=== PATIENT | female | born 1955 | race African-American/Black ===

== ENCOUNTER 2019-01-08 15:17 | Emergency (ER) | payer MEDICARE ==
[~2019-01-08] VITALS: Ht 172.7 cm; Wt 106.6 kg
--- OUTSIDE RECORDS SUMMARY | 2019-01-08 15:21 | XMS REPORT ---
Author Author Admin, [place] Organization [facility] Address [address] [place] [address] Phone Allergies, Adverse Reactions, Alerts Allergy Name Reaction Description Start Date Severity Status Provider TOMAS INHIBITORS Cough and angioedema Severe Active Yuridia Lissette DO INDOCIN Critical Active Radha Arreola MD Conditions or Problems Problem Name Problem Code Onset Date Status Entry Date Provider Comment Standard Description Annotate Smoking 305.1 Active Debby Marrufo Johnny DO Tobacco use disorder Cough due to TOMAS inhibitor 786.2 Active Yuridia Lissette DO Cough Neuropathy, peripheral 356.9 Active Yuridia Lissette DO Unspecified hereditary and idiopathic peripheral neuropathy BMI 39.0-39.9 Active Adelita Rizo MD Body Mass Index 39.0-39.9, adult Thrombocytosis 238.71 Active Adelita Rizo MD Essential thrombocythemia ANXIETY, GENERALIZED Active Maulik Pham [facility] Generalized anxiety disorder Seizure disorder 780.39 Active Adelita Rizo MD Other convulsions Sleep apnea, obstructive 327.23 Active Adelita Rizo MD Obstructive sleep apnea (adult) (pediatric) Colorectal screening V76.51 Active Adelita Rizo MD Screening for malignant neoplasms of colon 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 Adelita Rizo MD Neoplasm of uncertain behavior of skin Screening mammogram for breast cancer V76.12 Active Adelita Rizo MD Other screening mammogram COPD 496 Active Adelita Rizo MD Chronic airway obstruction, not elsewhere classified Prediabetes 790.29 Active Yuridia Mclaughlin DO Other abnormal glucose Drug Use - Positive DAST 305.9 Active 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 Other, mixed, or unspecified drug abuse Obesity 278.00 Active Gabriel Brock MD Obesity, unspecified Anxiety depression 300.4 Active 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 Dysthymic disorder Chronic back pain 724.5 Active 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 Backache, unspecified HTN 401.9 Active Radha Arreola MD Unspecified essential hypertension Hyperlipidemia 272.4 Active Radha Arreola MD Other and unspecified hyperlipidemia Respiratory failure, acute ICD-518.81 Inactive Yuridia Mclaughlin DO Snoring ICD-786.09 Inactive Yuridia Mclaughlin DO 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 Inactive Yuridia Mclaughlin DO BMI 37.0-37.9 Inactive Adelita Rizo MD Cough ICD-786.2 Inactive Yuridia Mclaughlin DO Smoking ICD-305.1 Inactive Yuridia Mclaughlin DO Hx of hysterectomy ICD-V88.02 Inactive Yuridia Mclaughlin DO Screening mammogram for breast cancer ICD-V76.12 Inactive Adelita Rizo MD Diabetes mellitus type II 250.00 Inactive Adelita Rizo MD Diabetes mellitus without mention of complication, type II or unspecified type, not stated as uncontrolled Health maintenance exam ICD-V70.0 Inactive Yuridia Mclaughlin DO Insomnia ICD-780.52 Inactive Yuridia Lissette DO Std screening ICD-V74.5 Inactive Yuridia Lissette DO Hx of narcotic abuse ICD-305.90 Inactive Yuridiacristina Mclaughlin DO Opioid abuse, continuous 305.51 Inactive Julio Klein MD Opioid abuse, continuous use Nerve pain ICD-729.2 Inactive Yuridia Mclaughlin DO ANXIETY, GENERALIZED ICD-300.02 Inactive Adelita Rizo MD Chest pain ICD-786.50 Inactive Yuridia Mclaughlin DO Shortness of breath ICD-786.05 Inactive Yuridia Mclaughlin DO Respiratory failure, acute 518.81 Resolved Yuridiacristina Mclaughlin DO Acute respiratory failure Snoring 786.09 Resolved Yuridia Lissette DO Other dyspnea and respiratory abnormality 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 Yuridia Lissette DO Thoracic aortic aneurysm without mention of rupture BMI 37.0-37.9 Resolved Adelita Rizo MD Body Mass Index 37.0-37.9, adult Cough 786.2 Resolved Yuridia Barfieldey DO Cough x 3 weeks, dry Smoking 305.1 Resolved Yuridia Mclaughlin DO Tobacco use disorder Hx of hysterectomy V88.02 Resolved Yuridia Mclaughlin DO Acquired absence of uterus with remaining cervical stump Screening mammogram for breast cancer V76.12 Resolved Adelita Rizo MD Other screening mammogram Health maintenance exam V70.0 Resolved Yuridia Mclaughlin DO Routine general medical examination at a health care facility Insomnia 780.52 Resolved Yuridia Mclaughlin DO Insomnia, unspecified Std screening V74.5 Resolved Yuridia Mclaughlin DO Screening examination for venereal disease Hx of narcotic abuse 305.90 Resolved Yuridia Mclaughlin DO Other, mixed, or unspecified drug abuse, unspecified use Nerve pain 729.2 Resolved Yuridia Mclaughlin DO Neuralgia, neuritis, and radiculitis, unspecified ANXIETY, GENERALIZED 300.02 Resolved Adelita Rizo MD Generalized anxiety disorder Chest pain 786.50 Resolved Yuridia Mclaughlin DO Unspecified chest pain Shortness of breath 786.05 Resolved Yuridia Mclaughlin DO Shortness of breath Medication List Medication Instructions Start Date Stop Date Generic Name NDC Status Provider Patient Instruction VENLAFAXINE HCL ER 150 MG CAP TAKE ONE CAPSULE BY MOUTH EVERY DAY VENLAFAXINE HCL 55566820921 Active Yuridia Mclaughlin DO Active GABAPENTIN 300 MG ORAL CAPSULE 1 tab By Mouth BID GABAPENTIN [id number] Henri Turner DO Active AMITRIPTYLINE HCL 25 MG ORAL TABLET 1 by mouth nightly at bedtime AMITRIPTYLINE HCL 50892970687 Henri Turner DO Active BUSPIRONE HCL 10 MG ORAL TABLET 1 by mouth twice a day BUSPIRONE HCL 36564048635 Henri Rizo MD Active HYDROCODONE-ACETAMINOPHEN 10-325 MG ORAL TABLET every 6 hours HYDROCODONE-ACETAMINOPHEN 66991828080 Henri Rizo MD Active PROAIR HFA 108 (90 Base) MCG/ACT INHALATION AEROSOL SOLUTION 2 puffs every 4 - 6 hours as needed ALBUTEROL SULFATE 59758826315 Henri Rizo MD Active IBUPROFEN 800 MG ORAL TABLET 1 by mouth every 8 hours as needed for pain IBUPROFEN 03920562545 Henri Rizo MD Active ATORVASTATIN CALCIUM 20 MG ORAL TABLET Take one tablet by mouth daily ATORVASTATIN CALCIUM 14031091906 Active Debby Niru Johnny DO Active LOSARTAN POTASSIUM 100 MG ORAL TABLET one tablet By Mouth qday LOSARTAN POTASSIUM 03620162651 Active Debby Niru Johnny DO Active NORVASC 10 MG ORAL TABLET 1 by mouth every day AMLODIPINE BESYLATE 12529615229 Active Debby Niru Johnny DO Active CHANTIX STARTING MONTH PETR 0.5 MG X 11 & 1 MG X 42 ORAL TABLET take 0.5 mg daily for 3 days then twice a day for 4 days. Then take 1mg twice a day for 11 more weeks CHANTIX STARTING MONTH PETR 0.5 MG X 11 & 1 MG X 42 ORAL TABLET VARENICLINE TARTRATE Inactive AMITRIPTYLINE HCL 10 MG ORAL TABLET 1 by mouth nightly at bedtime AMITRIPTYLINE HCL 10 MG ORAL TABLET 315636 AMITRIPTYLINE HCL Inactive LEVETIRACETAM 1000 MG ORAL TABLET take 1 tablet By Mouth Twice a Day LEVETIRACETAM 1000 MG ORAL TABLET 230480 LEVETIRACETAM Inactive TESSALON PERLES 100 MG ORAL CAPSULE 1 by mouth 3 times a day as needed for cough TESSALON PERLES 100 MG ORAL CAPSULE 675830 BENZONATATE Inactive TRAZODONE HCL 50 MG ORAL TABLET 1 by mouth nightly at bedtime TRAZODONE HCL 50 MG ORAL TABLET 280807 TRAZODONE HCL Inactive AZITHROMYCIN 250 MG ORAL TABLET 2 tablets by mouth on day one then one tablet by mouth each day for a total of 5 days AZITHROMYCIN 250 MG ORAL TABLET 887113 AZITHROMYCIN Inactive AMITRIPTYLINE HCL 50 MG ORAL TABLET 1 by mouth nightly at bedtime AMITRIPTYLINE HCL 50 MG ORAL TABLET 623212 AMITRIPTYLINE HCL Inactive BUSPIRONE HCL 10 MG ORAL TABLET 1 by mouth three times a day BUSPIRONE HCL 10 MG ORAL TABLET 720204 BUSPIRONE HCL Inactive TRAZODONE HCL 50 MG ORAL TABLET 1 by mouth nightly at bedtime TRAZODONE HCL 50 MG ORAL TABLET 225471 TRAZODONE HCL Inactive HYDROCODONE-ACETAMINOPHEN 10-325 MG ORAL TABLET 1 By Mouth Every Six hrs As Needed for pain HYDROCODONE-ACETAMINOPHEN 10-325 MG ORAL TABLET 559280 HYDROCODONE-ACETAMINOPHEN Inactive PROAIR HFA 108 (90 Base) MCG/ACT INHALATION AEROSOL SOLUTION 2 puffs every 4 - 6 hours as needed PROAIR HFA 108 (90 Base) MCG/ACT INHALATION AEROSOL SOLUTION ALBUTEROL SULFATE Inactive CLONAZEPAM 0.5 MG ORAL TABLET 1 By Mouth at bedtime CLONAZEPAM 0.5 MG ORAL TABLET 299931 CLONAZEPAM Inactive CYMBALTA 60 MG ORAL CAPSULE DELAYED RELEASE PARTICLES Take one tablet by mouth daily CYMBALTA 60 MG ORAL CAPSULE DELAYED RELEASE PARTICLES 928606 DULOXETINE HCL Inactive LYRICA 75 MG ORAL CAPSULE one capsule By Mouth Twice a Day LYRICA 75 MG ORAL CAPSULE PREGABALIN Inactive CHANTIX STARTING MONTH PETR 0.5 MG X 11 & 1 MG X 42 ORAL TABLET take 0.5 mg daily for 3 days then twice a day for 4 days. Then take 1mg twice a day for 11 more weeks VARENICLINE TARTRATE 84638879994 No Longer Active Debby Turner DO Active AMITRIPTYLINE HCL 10 MG ORAL TABLET 1 by mouth nightly at bedtime AMITRIPTYLINE HCL 62389059130 No Longer Active Adelita Rizo MD Active LEVETIRACETAM 1000 MG ORAL TABLET take 1 tablet By Mouth Twice a Day LEVETIRACETAM 67258942632 No Longer Active Adelita Rizo MD Active TESSALON PERLES 100 MG ORAL CAPSULE 1 by mouth 3 times a day as needed for cough BENZONATATE 54953245186 No Longer Active Adelita Rizo MD Active TRAZODONE HCL 50 MG ORAL TABLET 1 by mouth nightly at bedtime TRAZODONE HCL 40951586238 No Longer Active Adelita Rizo MD Active AZITHROMYCIN 250 MG ORAL TABLET 2 tablets by mouth on day one then one tablet by mouth each day for a total of 5 days AZITHROMYCIN 82695753841 No Longer Active Adelita Rizo MD Active AMITRIPTYLINE HCL 50 MG ORAL TABLET 1 by mouth nightly at bedtime AMITRIPTYLINE HCL 55323823186 No Longer Active Adelita Rizo MD Active BUSPIRONE HCL 10 MG ORAL TABLET 1 by mouth three times a day BUSPIRONE HCL 12516529278 No Longer Active Adelita Rizo MD Active TRAZODONE HCL 50 MG ORAL TABLET 1 by mouth nightly at bedtime TRAZODONE HCL 48594525145 No Longer Active Adelita Rizo MD Active HYDROCODONE-ACETAMINOPHEN 10-325 MG ORAL TABLET 1 By Mouth Every Six hrs As Needed for pain HYDROCODONE-ACETAMINOPHEN 71021120054 No Longer Active Adelita Rizo MD Active PROAIR HFA 108 (90 Base) MCG/ACT INHALATION AEROSOL SOLUTION 2 puffs every 4 - 6 hours as needed ALBUTEROL SULFATE 28927559701 No Longer Active Adelita Rizo MD Active BENAZEPRIL HCL 20 MG ORAL TABLET take 1 tablet By Mouth daily BENAZEPRIL HCL 47057458274 No Longer Active Adelita Rizo MD Active BENAZEPRIL-HYDROCHLOROTHIAZIDE 10-12.5 MG ORAL TABLET Take one tablet by mouth twice daily BENAZEPRIL-HYDROCHLOROTHIAZIDE 82424478687 No Longer Active Adelita Rizo MD Active CLONAZEPAM 0.5 MG ORAL TABLET 1 By Mouth at bedtime CLONAZEPAM 12699429019 No Longer Active Adeilta Rizo MD Active CYMBALTA 60 MG ORAL CAPSULE DELAYED RELEASE PARTICLES Take one tablet by mouth daily DULOXETINE HCL 58887937602 No Longer Active Julio Klein MD Active GABAPENTIN 300 MG ORAL CAPSULE 1 by mouth four times a day GABAPENTIN 89201909006 No Longer Active Adelita Rizo MD Active LYRICA 75 MG ORAL CAPSULE one capsule By Mouth Twice a Day PREGABALIN 59529413649 No Longer Active Debby Niru Matthewsus DO Active Advance Directives Directive Description Start Date DISCUSSED - NO DECISION MADE Vital Signs Date Name Value Unit Range Description blood pressure, diastolic 87 mm[Hg] BP edmondson blood pressure, systolic 143 mm[Hg] BP sys height E&M 67.50 [in_us] Bdy height pulse rate E&M 75 /min Heart rate temperature E&M 98.7 [degF] Body temperature weight E&M 261 [lb_av] Weight Measured Diagnostic Results Date Name Value Unit Range Description Lab Report: CBC With Differential/Platelet, Comp. Metabolic Panel (14), ... - Chemistry thyroid stimulating hormone, serum 1.080 u[iU]/mL 0.450-4.500 very low density lipoproteins 74 mg/dL 5-40 hepatitis B surface antigen Negative Negative chloride, serum 100 mmol/L 96-106 urea nitrogen, blood 25 mg/dL 8-27 Lab Report: CBC With Differential/Platelet, Comp. Metabolic Panel (14), ... - Hematology mean corpuscular hemoglobin concentration, RBC 33.0 G/DL % 31.5-35.7 erythrocyte (RBC) count 5.21 X10E6/UL 10*6/mm3 3.77-5.28 Lab Report: CBC With Differential/Platelet, Comp. Metabolic Panel (14), ... - Serology hepatitis C antibody, serum <0.1 0.0-0.9 Lab Report: CBC With Differential/Platelet, Comp. Metabolic Panel (14), ... - Chemistry Absolute Neutrophils 2.4 X10E3/UL 10*3/uL 1.4-7.0 LDL cholesterol, serum 96 mg/dL 0-99 urea nitrogen/creatinine ratio, serum 27 12-28 Lab Report: CBC With Differential/Platelet, Comp. Metabolic Panel (14), ... 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 Metabolic Panel (14), ... - Chemistry HDL cholesterol, serum 50 mg/dL >39 Lab Report: CBC With Differential/Platelet, Comp. Metabolic Panel (14), ... - Hematology monocytes as percent of blood leukocytes 10 % Not Estab. Lab Report: CBC With Differential/Platelet, Comp. Metabolic Panel (14), ... - Chemistry albumin/globulin ratio, serum 1.5 1.2-2.2 creatinine, serum 0.93 mg/dL 0.57-1.00 cholesterol, serum 220 mg/dL 190-256 1070/07/17 bilirubin, serum, total 0.3 mg/dL 0.0-1.2 Lab Report: CBC With Differential/Platelet, Comp. Metabolic Panel (14), ... - Hematology Eosinophil Absolute Count 0.1 X10E3/UL 10*3/uL 0.0-0.4 Lab Report: CBC With Differential/Platelet, Comp. Metabolic Panel (14), ... - Chemistry aspartate aminotransferase (SGOT), serum 50 U/L 0-40 Lab Report: CBC With Differential/Platelet, Comp. Metabolic Panel (14), ... - Hematology red blood cell distribution width 16.1 % 12.3-15.4 leukocyte count, blood 6.1 X10E3/UL 10*3/mm3 3.4-10.8 Lab Report: CBC With Differential/Platelet, Comp. Metabolic Panel (14), ... - Chemistry potassium, serum 5.7 mmol/L 3.5-5.2 albumin, serum 4.4 g/dL 3.6-4.8 immature granulocytes, percentage of total cells, blood 0 % Not Estab. Lab Report: CBC With Differential/Platelet, Comp. Metabolic Panel (14), ... - Hematology lymphocyte count, blood, automated 2.9 X10E3/UL 10*3/mm3 0.7-3.1 hematocrit, blood 46.1 % 34.0-46.6 Lab Report: CBC With Differential/Platelet, Comp. Metabolic Panel (14), ... - Chemistry sodium, serum 141 mmol/L 134-144 Lab Report: CBC With Differential/Platelet, Comp. Metabolic Panel (14), ... - Hematology neutrophils as percent of blood leukocytes 39 % Not Estab. basophils as percent of blood leukocytes 1 % Not Estab. Lab Report: CBC With Differential/Platelet, Comp. Metabolic Panel (14), ... - Serology rapid plasma reagin antibody, serum Non Reactive Non Reactive Lab Report: CBC With Differential/Platelet, Comp. Metabolic Panel (14), ... - Chemistry carbon dioxide, venous blood 18 mmol/L 20-29 triglyceride, serum, fasting 369 mg/dL 0-149 calcium, serum 9.3 mg/dL 8.7-10.3 alanine aminotransferase (SGPT), serum 48 U/L 0-32 Lab Report: CBC With Differential/Platelet, Comp. Metabolic Panel (14), ... - Hematology mean corpuscular hemoglobin, RBC 29.2 pg 26.6-33.0 Lab Report: CBC With Differential/Platelet, Comp. Metabolic Panel (14), ... - Chemistry protein, total, serum 7.4 g/dL 6.0-8.5 alkaline phosphatase, serum 71 U/L 39-117 Lab Report: CBC With Differential/Platelet, Comp. Metabolic Panel (14), ... - Hematology hemoglobin, blood 15.2 g/dL 11.1-15.9 lymphocytes as percent of blood leukocytes 48 % Not Estab. Lab Report: CBC With Differential/Platelet, Comp. Metabolic Panel (14), ... - Chemistry hemoglobin A1C, blood, as % of total hemoglobin 6.4 % 4.8-5.6 Lab Report: CBC With Differential/Platelet, Comp. Metabolic Panel (14), ... - Genetics/fertility eGFR if 76 mL/min/1.73m2 >59 Lab Report: CBC With Differential/Platelet, Comp. Metabolic Panel (14), ... - Hematology basophil count, absolute 0.0 x10E3/uL 0.0-0.2 Lab Report: CBC With Differential/Platelet, Comp. Metabolic Panel (14), ... - Chemistry globulin, serum 3.0 1.5-4.5 Estimated Glomerular Filtration Rate (calc) 66 mL/min/1.73m2 >59 vitamin D 25-hydroxy, serum 44.0 ng/mL 30.0-100.0 Lab Report: CBC With Differential/Platelet, Comp. Metabolic Panel (14), ... - Hematology eosinophils as percent of blood leukocytes 2 % Not Estab. Lab Report: CBC With Differential/Platelet, Comp. Metabolic Panel (14), ... - Chemistry blood glucose, random 106 mg/dL 65-99 Lab Report: CBC With Differential/Platelet, Comp. Metabolic Panel (14), ... - Hematology monocyte count, blood, automated 0.6 X10E3/UL 10*3/uL 0.1-0.9 platelet count 248 X10E3/UL 10*3/mm3 150-379 Encounters Date Encounter Provider Code Facility 11:08:21 CDT Est Patient Detailed - 87191 Debby Turner DO CPT-23221 [facility] 10:14:51 CDT Est Patient Detailed - 78204 Yuridia Mclaughlin DO CPT-19425 [facility] 11:17:46 CDT Est Patient Detailed - 97609 Yuridia Barfieldey DO CPT-46087 [facility] 13:52:07 CDT Est Patient Exp Problem - 33530 Andrew Crooks APRN CPT-79119 [facility] 15:23:45 CDT Est Patient Detailed - 49823 Adelita Rizo MD CPT-93374 [facility] 14:29:34 CDT Est Patient Detailed - 15325 Adelita Rizo MD CPT-14827 [facility] 12:36:17 MICROSYSTEMS ENGINEER Est Patient Detailed - 73828 Adelita Rizo MD CPT-08031 [facility] 13:38:13 CDT Est Patient Exp Problem - 95090 Adelita Rizo MD CPT-41704 [facility] 11:43:21 CDT Est Patient Exp Problem - 26519 Adelita Rizo MD CPT-87719 [facility] 12:25:35 CDT Est Patient Detailed - 86674 Adeltia Rizo MD CPT-98438 [facility] 12:15:33 CDT Est Patient Detailed - 45227 Adelita Rizo MD CPT-99749 [facility] 11:59:52 MICROSYSTEMS ENGINEER Est Patient Exp Problem - 30072 Gabriel Brock MD CPT-35562 [facility] 11:11:02 MICROSYSTEMS ENGINEER Est Patient Exp Problem - 86413 Lilli Mendoza [facility] CPT-00819 [facility] 14:52:37 MICROSYSTEMS ENGINEER New Patient Exp Problem - 34366 Radha Arreola MD CPT-78332 [facility] Procedures Code Procedure Name Date Entry Date Standard Description CPT-82023 Psychotherapy 45 (38-52*) min - 06311 (with patient and/or family member) 09:36:46 CDT CPT-27095 Xray - Chest - PA & Lat - InHouse 12:28:51 CDT CPT-11370 Diagnostic evaluation (no medical) - 84089 08:05:05 CDT CPT-37468 Diagnostic evaluation with medical - 26477 13:20:15 CDT CPT-26518 Diagnostic evaluation (no medical) - 33300 16:14:13 CDT
--- OUTSIDE RECORDS SUMMARY | 2019-01-08 15:21 | XMS REPORT | Continuity of Care Document ---
Author Author [employer] Organization [employer] Address Unknown Phone Unavailable Care Team Providers Care Key Account Executive Name Role Phone [employer] Unavailable Unavailable Problems Problem Status Onset Date Classification Date Reported Comments Source Noninfective gastroenteritis and colitis, unspecified 06/12/2018 10/17/2018 [facility] Abdominal pain, acute, right upper quadrant 03/30/2018 10/17/2018 [facility] Acute gastroenteritis 03/30/2018 10/17/2018 [facility] ABDOMINAL PAIN Active 03/30/2018 [facility] Cough due to TOMAS inhibitor Active 05/07/2017 Diagnosis 07/08/2018 [facility] Neuropathy, peripheral Active 02/24/2017 Diagnosis 07/08/2018 [facility] BMI 39.0-39.9 Active 01/07/2017 Diagnosis 07/08/2018 [facility] Thrombocytosis Active 01/07/2017 Diagnosis 07/08/2018 [facility] ANXIETY, GENERALIZED Active 12/29/2016 Diagnosis 07/08/2018 [facility] Seizure disorder Active 12/02/2016 Diagnosis 07/08/2018 [facility] Sleep apnea, obstructive Active 12/02/2016 Diagnosis 07/08/2018 [facility] Respiratory failure, acute Inactive 12/02/2016 Problem 07/08/2018 [facility] Snoring Inactive 12/02/2016 Problem 07/08/2018 [facility] STROKE Active 11/11/[address] [facility] AMS, SEPSIS Active 11/11/[address] [facility] Keratoacanthoma of skin Active 08/25/2016 Diagnosis 07/08/2018 [facility] Colorectal screening Active 08/25/2016 Diagnosis 07/08/2018 [facility] COPD Active 02/21/2016 Diagnosis 07/08/2018 [facility] aneurysm of aortic arch Inactive 02/21/2016 Problem 07/08/2018 [facility] BMI 37.0-37.9 Inactive 01/08/2016 Problem 07/08/2018 [facility] Smoking Inactive 01/07/2016 Problem 07/08/2018 [facility] Cough Inactive 01/07/2016 Problem 07/08/2018 [facility] Screening mammogram for breast cancer Inactive 11/22/2015 Problem 07/08/2018 [facility] Hx of hysterectomy Inactive 11/22/2015 Problem 07/08/2018 [facility] Diabetes mellitus type II Inactive 10/18/2015 Diagnosis 07/08/2018 [facility] Prediabetes Active 10/18/2015 Diagnosis 07/08/2018 [facility] Std screening Inactive 10/16/2015 Problem 07/08/2018 [facility] Health maintenance exam Inactive 10/16/2015 Problem 07/08/2018 [facility] Insomnia Inactive 10/16/2015 Problem 07/08/2018 [facility] Opioid abuse, continuous Inactive 10/03/2015 Diagnosis 07/08/2018 [facility] Hx of narcotic abuse Inactive 10/03/2015 Problem 07/08/2018 [facility] Drug Use - Positive DAST Active 09/26/2015 Diagnosis 07/08/2018 [facility] Obesity Active 09/21/2015 Diagnosis 07/08/2018 [facility] Anxiety depression Active 08/23/2015 Diagnosis 07/08/2018 [facility] Chronic back pain Active 08/23/2015 Diagnosis 07/08/2018 [facility] Nerve pain Inactive 08/23/2015 Problem 07/08/2018 [facility] HTN Active 08/21/2015 Diagnosis 07/08/2018 [facility] Hyperlipidemia Active 08/21/2015 Diagnosis 07/08/2018 [facility] ANXIETY, GENERALIZED Inactive 08/21/2015 Problem 07/08/2018 [facility] Shortness of breath Inactive 08/21/2015 Problem 07/08/2018 [facility] Chest pain Inactive 08/21/2015 Problem 07/08/2018 [facility] Right upper quadrant pain 10/17/2018 [facility] Type 2 diabetes mellitus without complications 10/17/2018 [facility] Essential hypertension 10/17/2018 [facility] Other alf drug therapy 10/17/2018 [facility] Personal history of transient ischemic attack , and cerebral infarction without residual deficits 10/17/2018 [facility] Allergy status to other drugs, medicaments and biological substances status 10/17/2018 [facility] Hypertension Resolved Problem 10/17/2018 [facility] TIA (Confirmed) Resolved Problem 10/17/2018 [facility] ALTERED MENTAL STATUS, UNSPECIFIED Active [facility] Medications Medication Details Route Status Patient Instructions Ordering Provider Order Date Source Ondansetron 4 MG Disintegrating Tablet [Zofran] 4 mg=1 tab, PO, BID, PRN Nausea and Vomiting, Dissolve tab under tongue, # 10 tab, 0 Refill(s) Active 03/30/2018 [facility] Metronidazole 500 MG Oral Tablet [Flagyl] 500 mg=1 tab, PO, BID, X 7 day, # 14 tab, 0 Refill(s) No Longer Active 03/30/2018 [facility] Ciprofloxacin 500 MG Oral Tablet [Cipro] 500 mg=1 tab, PO, Q12H, X 7 day, # 14 tab, 0 Refill(s) No Longer Active 03/30/2018 [facility] Ondansetron 8 mg, 4 mL, Route: IVP, Drug form: INJ, ONCE, Dosing Weight 115.909, kg, Priority: STAT, Start date: 03/30/18 12:40:00 CDT, Stop date: 03/30/18 12:40:00 CDTNotes: (Same as: Zofran) MEDICATION WASTE Product Size: 4 mg Product Wasted: ___ mg Inactive 03/30/2018 [facility] Sodium Chloride 0.9% (Bolus) IV 1,000 mL, 1000 ml/hr, Infuse Over: 1 hr, Route: IV, 1,000, Drug form: INJ, ONCE, Priority: STAT, Dosing Weight 115.909 kg, Start date: 03/30/18 12:40:00 CDT, Stop date: 03/30/18 12:40:00 CDT Inactive 03/30/2018 [facility] Morphine 4 mg, 1 mL, Route: IVP, Drug form: SOLN, ONCE, Dosing Weight 115.909, kg, Priority: STAT, Start date: 03/30/18 12:40:00 CDT, Stop date: 03/30/18 12:40:00 CDTNotes: (Same as:MORPhine Sulfate) Inactive 03/30/2018 [facility] VENLAFAXINE HCL ER 150 MG CAP TAKE ONE CAPSULE BY MOUTH EVERY DAY Active TAKE ONE CAPSULE BY MOUTH EVERY DAY 03/25/2018 [facility] CHANTIX STARTING MONTH PETR 0.5 MG X 11 & 1 MG X 42 ORAL TABLET take 0.5 mg daily for 3 days then twice a day for 4 days. Then take 1mg twice a day for 11 more weeks Active take 0.5 mg daily for 3 days then twice a day for 4 days. Then take 1mg twice a day for 11 more weeks 01/26/2018 [facility] GABAPENTIN 1 tab By Mouth BID Active 1 tab By Mouth BID 01/26/2018 [facility] CHANTIX STARTING MONTH PETR 0.5 MG X 11 & 1 MG X 42 ORAL TABLET take 0.5 mg daily for 3 days then twice a day for 4 days. Then take 1mg twice a day for 11 more weeks No Longer Active take 0.5 mg daily for 3 days then twice a day for 4 days. Then take 1mg twice a day for 11 more weeks 01/26/2018 [facility] HYDROCODONE-ACETAMINOPHEN every 6 hours Active every 6 hours 01/07/2017 [facility] AMITRIPTYLINE HCL 1 by mouth nightly at bedtime Active 1 by mouth nightly at bedtime 01/07/2017 [facility] BUSPIRONE HCL 1 by mouth twice a day Active 1 by mouth twice a day 01/07/2017 [facility] AMITRIPTYLINE HCL 1 by mouth nightly at bedtime Inactive 1 by mouth nightly at bedtime 12/02/2016 [facility] LEVETIRACETAM take 1 tablet By Mouth Twice a Day No Longer Active take 1 tablet By Mouth Twice a Day 12/02/2016 [facility] TESSALON PERLES 100 MG ORAL CAPSULE 1 by mouth 3 times a day as needed for cough Active 1 by mouth 3 times a day as needed for cough 01/29/2016 [facility] TRAZODONE HCL 1 by mouth nightly at bedtime No Longer Active 1 by mouth nightly at bedtime 01/29/2016 [facility] TESSALON PERLES 100 MG ORAL CAPSULE 1 by mouth 3 times a day as needed for cough No Longer Active 1 by mouth 3 times a day as needed for cough 01/29/2016 [facility] PROAIR HFA 108 (90 Base) MCG/ACT INHALATION AEROSOL SOLUTION 2 puffs every 4 - 6 hours as needed Active 2 puffs every 4 - 6 hours as needed 01/07/2016 [facility] AZITHROMYCIN 2 tablets by mouth on day one then one tablet by mouth each day for a total of 5 days No Longer Active 2 tablets by mouth on day one then one tablet by mouth each day for a total of 5 days 01/07/2016 [facility] IBUPROFEN 1 by mouth every 8 hours as needed for pain Active 1 by mouth every 8 hours as needed for pain 11/22/2015 [facility] BUSPIRONE HCL 1 by mouth three times a day No Longer Active 1 by mouth three times a day 11/22/2015 [facility] AMITRIPTYLINE HCL 1 by mouth nightly at bedtime No Longer Active 1 by mouth nightly at bedtime 11/22/2015 [facility] TRAZODONE HCL 1 by mouth nightly at bedtime No Longer Active 1 by mouth nightly at bedtime 10/16/2015 [facility] HYDROCODONE-ACETAMINOPHEN 1 By Mouth Every Six hrs As Needed for pain No Longer Active 1 By Mouth Every Six hrs As Needed for pain 10/03/2015 [facility] PROAIR HFA 108 (90 Base) MCG/ACT INHALATION AEROSOL SOLUTION 2 puffs every 4 - 6 hours as needed Active 2 puffs every 4 - 6 hours as needed 08/23/2015 [facility] PROAIR HFA 108 (90 Base) MCG/ACT INHALATION AEROSOL SOLUTION 2 puffs every 4 - 6 hours as needed No Longer Active 2 puffs every 4 - 6 hours as needed 08/23/2015 [facility] LYRICA 75 MG ORAL CAPSULE one capsule By Mouth Twice a Day Active one capsule By Mouth Twice a Day 08/21/2015 [facility] LOSARTAN POTASSIUM one tablet By Mouth qday Active one tablet By Mouth qday 08/21/2015 [facility] BENAZEPRIL HCL take 1 tablet By Mouth daily Active take 1 tablet By Mouth daily 08/21/2015 [facility] BENAZEPRIL-HYDROCHLOROTHIAZIDE Take one tablet by mouth twice daily Active Take one tablet by mouth twice daily 08/21/2015 [facility] ATORVASTATIN CALCIUM Take one tablet by mouth daily Active Take one tablet by mouth daily 08/21/2015 [facility] GABAPENTIN 1 by mouth four times a day Active 1 by mouth four times a day 08/21/2015 [facility] NORVASC 10 MG ORAL TABLET 1 by mouth every day Active 1 by mouth every day 08/21/2015 [facility] CYMBALTA 60 MG ORAL CAPSULE DELAYED RELEASE PARTICLES Take one tablet by mouth daily Active Take one tablet by mouth daily 08/21/2015 [facility] CYMBALTA 60 MG ORAL CAPSULE DELAYED RELEASE PARTICLES Take one tablet by mouth daily No Longer Active Take one tablet by mouth daily 08/21/2015 [facility] CLONAZEPAM 1 By Mouth at bedtime No Longer Active 1 By Mouth at bedtime 08/21/2015 [facility] LYRICA 75 MG ORAL CAPSULE one capsule By Mouth Twice a Day No Longer Active one capsule By Mouth Twice a Day 08/21/2015 [facility] Allergies, Adverse Reactions, Alerts Substance Category Reaction Severity Reaction type Status Date Reported Comments Source INDOCIN drug allergy 08/21/2015 [facility] TOMAS INHIBITORS drug allergy Cough and angioedema 05/07/2017 [facility] Indocin Assertion Drug allergy Active [facility] Immunizations No Data Provided for This Section Results Order Name Results Value Reference Range Date Interpretation Comments Source URINE AND STOOL UA Bacteria Many /HPF None Seen /HPF 03/30/2018 [facility] URINE AND STOOL UA Hyal Cast 6-10 (03/30/18 2:05 PM) 0 - 2 03/30/2018 [facility] URINE AND STOOL UA Mucus Many /LPF None Seen /LPF 03/30/2018 [facility] URINE AND STOOL UA Amorph Gin Moderate /HPF None Seen /HPF 03/30/2018 [facility] URINE AND STOOL UA Protein Trace *ABN* (03/30/18 2:05 PM) Negative 03/30/2018 [facility] URINE AND STOOL UA pH 5.5 5.0 - 8.0 03/30/2018 [facility] URINE AND STOOL UA Spec Grav >=1.030 *ABN* (03/30/18 2:05 PM) <=1.030 03/30/2018 [facility] URINE AND STOOL UA Glucose Negative (03/30/18 2:05 PM) Negative 03/30/2018 [facility] URINE AND STOOL UA WBC 6-10 /HPF None Seen /HPF 03/30/2018 [facility] URINE AND STOOL UA RBC 3-5 /HPF 0 - 2 03/30/2018 [facility] URINE AND STOOL UA Leuk Est Trace *ABN* (03/30/18 2:05 PM) Negative 03/30/2018 [facility] URINE AND STOOL UA Nitrite Negative (03/30/18 2:05 PM) Negative 03/30/2018 [facility] URINE AND STOOL UA Turbidity Slight Cloudy (03/30/18 2:05 PM) Clear 03/30/2018 [facility] URINE AND STOOL UA Color Viky *ABN* (03/30/18 2:05 PM) Yellow 03/30/2018 [facility] URINE AND STOOL UA Sq Epi Many /LPF Few /LPF 03/30/2018 [facility] URINE AND STOOL UA Urobilinogen 0.2 0.1 - 1.0 03/30/2018 [facility] URINE AND STOOL UA Blood Negative (03/30/18 2:05 PM) Negative 03/30/2018 [facility] URINE AND STOOL UA Bili Small *ABN* (03/30/18 2:05 PM) Negative 03/30/2018 [facility] URINE AND STOOL UA Ketones Trace *ABN* (03/30/18 2:05 PM) Negative 03/30/2018 [facility] Culture: Urine <10,000 CFU/mL Skin Radha 03/30/2018 [facility] CARDIAC ENZYMES Troponin-I <0.02 0.00 - 0.40 03/30/2018 [facility] CHEM PANEL Lipase Lvl 64 73 - 393 03/30/2018 [facility] CHEM PANEL eGFR 59 03/30/2018 Result Comment: The eGFR is calculated using the CKD-EPI formula. In most young, healthy individuals the eGFR will be >90 mL/min/1.73m2. The eGFR declines with age. An eGFR of 60-89 may be normal in some populations, particularly the elderly, for whom the CKD-EPI formula has not been extensively validated. Use of the eGFR is not recommended in the following populations:

Individuals with unstable creatinine concentrations, including patients and those with serious co-morbid conditions.

Patients with extremes in muscle mass or diet.

The data above are obtained from the National Kidney Disease Education Program (NKDEP) which additionally recommends that when the eGFR is used in patients with extremes of body mass index for purposes of drug dosing, the eGFR should be multiplied by the estimated BMI. [facility] CHEM PANEL Bili Total 0.5 0.2 - 1.3 03/30/2018 [facility] CHEM PANEL AST 51 0 - 37 03/30/2018 [facility] CHEM PANEL Alk Phos 99 39 - 136 03/30/2018 [facility] CHEM PANEL Total Protein 8.8 6.4 - 8.4 03/30/2018 [facility] CHEM PANEL Albumin Lvl 4.1 3.5 - 5.0 03/30/2018 [facility] CHEM PANEL ALT 54 0 - 65 03/30/2018 [facility] CHEM PANEL Chloride Lvl 102 95 - 109 03/30/2018 [facility] CHEM PANEL CO2 28 24 - 32 03/30/2018 [facility] CHEM PANEL Calcium Lvl 9.3 8.5 - 10.5 03/30/2018 [facility] CHEM PANEL BUN 15 7 - 22 03/30/2018 [facility] CHEM PANEL Creatinine Lvl 1.15 0.50 - 1.40 03/30/2018 [facility] CHEM PANEL Potassium Lvl 4.4 3.5 - 5.1 03/30/2018 [facility] CHEM PANEL Sodium Lvl 138 135 - 145 03/30/2018 [facility] CHEM PANEL Glucose Lvl 143 70 - 99 03/30/2018 [facility] CHEM PANEL AGAP 12.4 10.0 - 20.0 03/30/2018 [facility] CHEM PANEL B/C Ratio 13 6 - 25 03/30/2018 [facility] CHEM PANEL Globulin 4.7 2.7 - 4.2 03/30/2018 [facility] CHEM PANEL A/G Ratio 0.9 0.7 - 1.6 03/30/2018 [facility] HEMATOLOGY PTT 26.2 22.9 - 35.8 03/30/2018 [facility] HEMATOLOGY INR 0.98 0.85 - 1.17 03/30/2018 [facility] HEMATOLOGY PT 13.0 12.0 - 14.7 03/30/2018 [facility] HEMATOLOGY MCV 87.3 80.0 - 98.0 03/30/2018 [facility] HEMATOLOGY MCHC 33.1 32.0 - 36.0 03/30/2018 [facility] HEMATOLOGY MCH 28.9 27.0 - 31.0 03/30/2018 [facility] HEMATOLOGY Hct 47.9 36.0 - 48.0 03/30/2018 [facility] HEMATOLOGY Hgb 15.8 12.0 - 16.0 03/30/2018 [facility] HEMATOLOGY RBC 5.48 4.20 - 5.40 03/30/2018 [facility] HEMATOLOGY WBC 8.2 3.7 - 10.4 03/30/2018 [facility] HEMATOLOGY Platelet 379 133 - 450 03/30/2018 [facility] HEMATOLOGY MPV 7.6 7.4 - 10.4 03/30/2018 [facility] HEMATOLOGY RDW 13.5 11.5 - 14.5 03/30/2018 [facility] HEMATOLOGY Segs 50.6 45.0 - 75.0 03/30/2018 [facility] HEMATOLOGY Monocytes 9.3 2.0 - 12.0 03/30/2018 [facility] HEMATOLOGY Lymphocytes 38.2 20.0 - 40.0 03/30/2018 [facility] HEMATOLOGY Monocytes # 0.8 0.0 - 0.8 03/30/2018 [facility] HEMATOLOGY Lymphocytes # 3.1 1.0 - 5.5 03/30/2018 [facility] HEMATOLOGY Neutrophils # 4.2 1.5 - 8.1 03/30/2018 [facility] HEMATOLOGY Basophils 0.6 0.0 - 1.0 03/30/2018 [facility] HEMATOLOGY Eosinophils 1.3 0.0 - 4.0 03/30/2018 [facility] HEMATOLOGY Eosinophils # 0.1 0.0 - 0.5 03/30/2018 [facility] thyroid stimulating hormone, serum 1.080 0.450 - 4.500 01/26/2018 [facility] chloride, serum 100 96 - 106 01/26/2018 [facility] urea nitrogen, blood 25 8 - 27 01/26/2018 [facility] mean corpuscular hemoglobin concentration, RBC 33.0 G/DL 31.5 - 35.7 01/26/2018 [facility] erythrocyte (RBC) count 5.21 X10E6/UL 3.77 - 5.28 01/26/2018 [facility] Absolute Neutrophils 2.4 X10E3/UL 1.4 - 7.0 01/26/2018 [facility] urea nitrogen/creatinine ratio, serum 27 12 - 28 01/26/2018 [facility] mean corpuscular volume, RBC 89 79 - 97 01/26/2018 [facility] monocytes as percent of blood leukocytes 10 Not Estab. 01/26/2018 [facility] albumin/globulin ratio, serum 1.5 1.2 - 2.2 01/26/2018 [facility] creatinine, serum 0.93 0.57 - 1.00 01/26/2018 [facility] bilirubin, serum, total 0.3 0.0 - 1.2 01/26/2018 [facility] Eosinophil Absolute Count 0.1 X10E3/UL 0.0 - 0.4 01/26/2018 [facility] aspartate aminotransferase (SGOT), serum 50 0 - 40 01/26/2018 [facility] red blood cell distribution width 16.1 12.3 - 15.4 01/26/2018 [facility] leukocyte count, blood 6.1 X10E3/UL 3.4 - 10.8 01/26/2018 [facility] potassium, serum 5.7 3.5 - 5.2 01/26/2018 [facility] albumin, serum 4.4 3.6 - 4.8 01/26/2018 [facility] immature granulocytes, percentage of total cells, blood 0 Not Estab. 01/26/2018 [facility] lymphocyte count, blood, automated 2.9 X10E3/UL 0.7 - 3.1 01/26/2018 [facility] hematocrit, blood 46.1 34.0 - 46.6 01/26/2018 [facility] sodium, serum 141 134 - 144 01/26/2018 [facility] neutrophils as percent of blood leukocytes 39 Not Estab. 01/26/2018 [facility] basophils as percent of blood leukocytes 1 Not Estab. 01/26/2018 [facility] carbon dioxide, venous blood 18 20 - 29 01/26/2018 [facility] calcium, serum 9.3 8.7 - 10.3 01/26/2018 [facility] alanine aminotransferase (SGPT), serum 48 0 - 32 01/26/2018 [facility] mean corpuscular hemoglobin, RBC 29.2 26.6 - 33.0 01/26/2018 [facility] protein, total, serum 7.4 6.0 - 8.5 01/26/2018 [facility] alkaline phosphatase, serum 71 39 - 117 01/26/2018 [facility] hemoglobin, blood 15.2 11.1 - 15.9 01/26/2018 [facility] lymphocytes as percent of blood leukocytes 48 Not Estab. 01/26/2018 [facility] hemoglobin A1C, blood, as % of total hemoglobin 6.4 4.8 - 5.6 01/26/2018 [facility] eGFR if 76 >59 01/26/2018 [facility] basophil count, absolute 0.0 x10E3/uL 0.0 - 0.2 01/26/2018 [facility] globulin, serum 3.0 1.5 - 4.5 01/26/2018 [facility] Estimated Glomerular Filtration Rate (calc) 66 >59 01/26/2018 [facility] eosinophils as percent of blood leukocytes 2 Not Estab. 01/26/2018 [facility] blood glucose, random 106 65 - 99 01/26/2018 [facility] monocyte count, blood, automated 0.6 X10E3/UL 0.1 - 0.9 01/26/2018 [facility] platelet count 248 X10E3/UL 150 - 379 [facility]26/[facility] name Vincent Patiño, CTA 02/12/2016 [facility] very low density lipoproteins 74 5 - 40 10/16/2015 [facility] hepatitis B surface antigen Negative Negative 10/16/2015 [facility] hepatitis C antibody, serum <0.1 0.0 - 0.9 10/16/2015 [facility] LDL cholesterol, serum 96 0 - 99 10/16/2015 [facility] HDL cholesterol, serum 50 >39 10/16/2015 [facility] cholesterol, serum 220 100 - 199 10/16/2015 [facility] rapid plasma reagin antibody, serum Non Reactive Non Reactive 10/16/2015 [facility] triglyceride, serum, fasting 369 0 - 149 10/16/2015 [facility] vitamin D 25-hydroxy, serum 44.0 30.0 - 100.0 10/16/2015 [facility] Pathology Reports No Data Provided for This Section Diagnostic Reports Report Value Date Source Renal Stone CT Clinical Indication: Abdominal pain, acute - renal stone protocol. Comparison: November 12, 2016. TECHNIQUE: Noncontrast helical imaging was performed without IV contrast from diaphragm to the symphysis pubis regions. Multiplanar reformations are obtained. Oral contrast: None. CT imaging performed at this location utilizes radiation dose optimization techniques which include one or more of the following: -Automated exposure control -Adjustment of the mA and/or kV according to patient size -Use of iterative reconstruction technique CT Radiation Dose DLP 740 mGy-cm FINDINGS: This examination is limited for the evaluation of solid organs and vascular structures due to withheld intravenous contrast. LOWER CHEST: There is dependent atelectasis. NON-CONTRAST ENHANCED SOLID ORGANS: LIVER: Unremarkable. GALLBLADDER: Unremarkable. INTRAHEPATIC BILE DUCT AND EXTRAHEPATIC BILE DUCT: Unremarkable. PANCREAS: Unremarkable. SPLEEN: Unremarkable. ADRENALS: Unremarkable. KIDNEYS: No urinary calculi, hydronephrosis or perinephric stranding. The renal contours are normal. The lack of oral contrast limits evaluation of the hollow viscus structures. NON-CONTRAST OPACIFIED STOMACH AND BOWEL: STOMACH: Unremarkable. BOWEL: No significant small bowel distention. There is diverticulosis. No evidence of acute diverticulitis. APPENDIX: Not well seen on the exam. PERITONEUM AND RETROPERITONEUM: No ascites or free air. There is no aortic aneurysm seen. There are phleboliths. LYMPH NODES: Unremarkable. PELVIS: There is a partially calcified left adnexa, which appears lobular and mildly hyperdense, however unchanged from prior study. Consider pelvic ultrasound. BLADDER: Under distended. OSSEOUS STRUCTURES: There is an abnormal appearance of the left ilium. Multiple cortical erosive changes identified, however this is not significantly changed from prior study. Status post lower lumbar spinal fusion. Degree of anterolisthesis of L4 relative to L5 is unchanged. SOFT TISSUES: Unremarkable. IMPRESSION: No definitive CT evidence of acute pathology. Diverticulosis. Partially calcified and somewhat hyperdense left adnexa. Consider pelvic ultrasound for better evaluation. Abnormal appearance of left ilium, without change from prior study. Status post lumbar spinal fusion L4-5, with similar degree of anterolisthesis. SL: [id number] 03/30/2018 [facility] Gallbladder US Clinical Indication: - ruq pain. Comparison: None. TECHNIQUE: Multiplanar grayscale and color Doppler ultrasound evaluation of the right upper quadrant abdomen was performed with standard technique. FINDINGS: LIVER: Mild diffusely increased parenchymal echogenicity, suggestive of fatty infiltration. No suspicious lesion or surface nodularity. Right hepatic lobe measures 12.5 cm at the midclavicular line. The portal vein is patent and normal in caliber with hepatopetal flow. BILE DUCTS: There is no appreciable intrahepatic biliary ductal dilation. Mid common bile duct is not well seen due to deep position and body habitus. GALLBLADDER: No shadowing gallstones, gallbladder sludge, pericholecystic fluid or wall thickening. PANCREAS: Not well seen due to overlying bowel gas. RIGHT KIDNEY: The right kidney measures 11.5 cm. Normal parenchymal echotexture. No hydronephrosis, suspicious renal mass, or shadowing stone. AORTA AND INFERIOR VENA CAVA: The abdominal aorta and inferior vena cava are not well visualized due to patient body habitus and bowel gas. IMPRESSION: Technically limited exam due to body habitus. Negative for gallstones. Mild hepatic steatosis. SL: [id number] 03/30/2018 [facility] Spine lumbar puncture w fluoro DX EXAM: Lumbar Puncture, fluoroscopic guidance. DATE: 11/17/2016 at 1820 hours INDICATION: Admitted with altered mental status now resolved after initiating treatment. TECHNIQUE Informed consent was obtained from the patient. The procedure was done with the patient in the prone position. The patient's lower back was prepped and draped in the usual sterile fashion. Following time-out, a 20 gauge 6 ' long spinal Quincke needle was advanced into the thecal sac at the L2-L3 interspace under fluoroscopic guidance FINDINGS: The opening pressure was 10 cm H2O prone A total volume of 11 mL of clear spinal fluid was collected and submitted for laboratory analysis. FLUOROSCOPY TIME: 1 minute with a skin dose of 56.7 mGy. IMPRESSION: Fluoroscopically guided lumbar puncture. Opening pressure 10 cm H2O prone. Clear CSF submitted for laboratory analysis. 11/17/[address] [facility] Chest 1view DX EXAM: XR CHEST 1 VIEW DATE: 11/14/2016 3:00 AM CDT INDICATION: Abnormal chest sounds. FINDINGS: Comparison is made to November 13. The cardiomediastinal silhouette is prominent but stable with a tortuous and ectatic aorta. The endotracheal tube and nasogastric tube have been removed. There is plate like atelectasis in the left lung base. The lungs are low in volume. No pleural effusions are identified. IMPRESSION: Mild left basilar platelike atelectasis with low lung volumes. 11/14/[address] [facility] Retroperitoneal Complete US EXAM: US RENAL DATE: 11/13/2016 at 0941 hours INDICATION: Leukocytosis - Possible abbess on left kidney on CT COMPARISON: CT abdomen and pelvis dated 11/12/2016 TECHNIQUE: Multiplanar grayscale and color Doppler ultrasound of the kidneys and urinary bladder. FINDINGS: Right kidney: Size: 11.5 x 4.5 x 7.0 cm. Hydronephrosis: None. Echogenicity: Normal. Calculi: None. Cysts/Masses: None. Left kidney: Size: 12.6 x 5.6 x 7.2 cm. Hydronephrosis: None. Echogenicity: Normal. Calculi: None. Cysts/Masses: None. No fluid collection/abscess identified. Bladder: Normal. Other: None. IMPRESSION: 1. No renal abscess identified. 2. No hydronephrosis, obstructing calculi or mass identified. 11/13/[address] [facility] Chest 1view DX EXAM: XR CHEST 1 VIEW DATE: 11/13/2016 3:00 AM CDT INDICATION: Abnormal chest sounds COMPARISON: 11/12/2016 TECHNIQUE: AP chest IMPRESSION: 1. Lines and tubes are stable. 2. Cardiomediastinal silhouette is enlarged, unchanged. 3. Diminished lung volumes bilaterally small lateral pleural effusions and bibasilar atelectatic changes. 4. No acute osseous abnormalities. 5. Interval removal of the left IJV central venous line. 11/13/[address] [facility] Abdomen 1 v for Placement DX EXAM: XR ABDOMEN 1 VIEW DATE: 11/12/2016 8:25 PM CDT INDICATION: Tube placement ADDITIONAL INFORMATION: None. COMPARISON: None. TECHNIQUE: AP view of the abdomen. FINDINGS: Nasogastric tube side port overlies the gastric cardia. IMPRESSION: 1. Nasogastric tube side port overlies the gastric cardia. 11/12/[address] [facility] Brain wo contrast MRI MRI OF THE BRAIN DATE: 11/12/2016 at 8:44 PM. COMPARISON: CT brain CTA perfusion 11/11/2016. HISTORY: Dysarthria. Acute altered mental status. TECHNIQUE: Axial MR imaging was performed utilizing FLAIR, diffusion, and gradient echo T2 weighting. FINDINGS: There is no restricted diffusion to indicate acute infarction. The pickett-white interfaces are well defined. Extensive confluent increased T2 and FLAIR signal is noted within the subcortical and periventricular white matter of both hemispheres, and within the jennifer. This finding is nonspecific and is most consistent with chronic small vessel ischemic disease. There are no mass lesions or extra-axial collections. Normal vascular flow voids are noted. IMPRESSION: 1. No acute intracranial abnormality. 2. Extensive T2 white matter hyperintensity consistent with chronic small vessel ischemic disease. Resident preliminary report by Dr. Reeder Mcnulty: IMPRESSION: No acute ischemic changes. Extensive microangiopathic ischemic changes within subcortical and periventricular white matter as well as the brainstem. [place] SECTION: Neuro 11/12/[address] [facility] Chest 1view DX EXAM: XR CHEST 1 VIEW DATE: 11/12/2016 5:02 PM CDT INDICATION: Abnormal chest sounds COMPARISON: 11/12/2016, 5:48 AM TECHNIQUE: AP chest FINDINGS: Low lung volumes. There is no focal consolidation or pneumothorax. Endotracheal tube, enteric tube and left-sided catheter are similar in position. There is flattening of the left hemidiaphragm with blunting of left costophrenic angle, which may be due to subsegmental atelectasis and/or pleural effusion. Evaluation of cardiac size is limited due to positioning, appears unchanged. IMPRESSION: 1. Flattening of the left hemidiaphragm with blunting of left costophrenic angle may be due to atelectasis and/or pleural effusion. 2. Unchanged appearance of support devices. 11/12/[address] [facility] Chest 1 v for Placement DX EXAM: Chest 1 v for Placement DX DATE: 11/12/2016 5:48 AM CDT INDICATION: Line Placement - Chest 1 view for line placement ADDITIONAL HISTORY: Altered mental status. COMPARISON: Chest 1 view 11/12/2016 at 0228 hours. TECHNIQUE: Portable AP semierect chest with a total of 1 image(s). FINDINGS: Lines, tubes, devices: The endotracheal tube tip remains at the level of the medial clavicles, projected approximately 5 cm above the thomas. There is a transesophageal gastric suction tube that extends into the gastric fundus. There is a left internal jugular central venous catheter that extends to the left brachiocephalic vein. Numerous cardiac monitoring leads overlie the chest. Lungs: The lung volumes are diminished with bibasilar patchy and streaky opacities. Pleura: There is no pleural effusion or pneumothorax identified given the technique. Heart and mediastinum: The heart size is top normal for technique. The pulmonary vasculature is normal. There is a tortuous thoracic aorta. Bones: No acute bony abnormality is identified. Soft Tissue: There has been interval resolution of gaseous gastric distention. IMPRESSION: 1. Interval placement of a left internal jugular central venous catheter extending to the left brachiocephalic vein. 2. Interval placement of a gastric suction tube with gastric decompression. 3. Slightly improved aeration of the lungs with persistent low lung volumes and bibasilar patchy and streaky opacities likely representing atelectasis, although aspiration or developing consolidation is not excluded. 11/12/[address] [facility] ED Abdomen/Pelvis IV contrast only CT EXAM: CT ABDOMEN AND PELVIS WITH CONTRAST DATE: 11/12/2016 1:51 AM CDT INDICATION: Source of sepsis COMPARISON: None. TECHNIQUE: Volumetric CT acquisition of the abdomen and pelvis after the intravenous administration contrast. Axial, coronal and sagittal reconstructions. Postcontrast phases: Venous and delayed. IV contrast: 135 mL of Visipaque 320 Enteric contrast: None. DLP: 5742 mGy-cm FINDINGS: Lines, tubes and hardware: Nasogastric tube terminates within the stomach. Fried catheter terminates within the bladder. Lower thorax: Small right and trace left pleural effusions with superimposed compressive atelectasis. Liver: Normal. Biliary tree: No intra- or extrahepatic biliary ductal dilation. Gallbladder: Normal. No CT evidence of gallstones. Pancreas: Normal. Spleen: Normal. Adrenals: The right adrenal gland is unremarkable. Nonspecific minimal left adrenal gland thickening. Kidneys and ureters: Wedge shaped perfusion defect of the left upper renal pole as seen on image 31 of series 8 may represent focal pyelonephritis/abscess. Additionally, there is superficial minimal perinephric fat stranding. Bladder: Normal. Reproductive organs: The uterus and right ovaries are absent. The left ovary appears prominent measuring 3.4 x 3.5 with central dystrophic calcification and intermediate attenuating cystic lesion measuring 2.0 x 1.6 cm. Gastrointestinal tract: Colonic diverticulosis without CT evidence of diverticulitis. Appendix: Normal. Peritoneum and retroperitoneum: No ascites or free air. No other fluid collection. Lymph nodes: Normal. Vasculature: Normal. Bones: Posterior alisha and screw fusion at the L4-L5 levels. Grade 2 anterolisthesis of L4 on L5 . Soft tissues: Normal. IMPRESSION: 1. Wedge-shaped perfusion defect of the left upper renal pole likely represents focal pyelonephritis/abscess. Minimal amount of perinephric stranding seen in this region. Correlation with urinalysis is recommended. 2. Intermediate-attenuating ovarian cystic lesion and central dystrophic calcification could be better evaluated with nonemergent pelvic ultrasound. 3. Colonic diverticulosis. 4. Grade 2 anterolisthesis of L4 on L5 with changes of posterior fusion. 5. Small right and trace left pleural effusions with superimposed compressive atelectasis. 6. Nonspecific left adrenal gland thickening. The radiology findings are discussed with Dr. Amato at the time of dictation. 11/12/[address] [facility] Chest Pulmonary Embolism CTA EXAM: CTA CHEST WITH CONTRAST DATE: 11/12/2016 1:25 AM CDT INDICATION: Shortness of Breath - Persistently tachypneic and tachycardic COMPARISON: Chest radiograph from the same day. TECHNIQUE: Volumetric CT acquisition of the chest, during pulmonary arterial phase, after intravenous contrast. Axial, sagittal, coronal, and oblique MIP reconstructions are created at the acquisition workstation. IV Contrast: 135 mL Visipaque 320 DLP: 677 mGy-cm FINDINGS: Lines and tubes: An endotracheal tube has its tip in the mid trachea. A left jugular central line has its tip in the left brachiocephalic vein. A nasogastric tube has its tip in the gastric fundus. Lower neck: Unremarkable. Heart and Mediastinum: Cardiothoracic ratio measures 13/24. There is no pericardial effusion. Measurements and appearance of the thoracic aorta are normal. At the same level where the ascending aorta measures 2.8 cm the pulmonary trunk measures 3 cm. Evaluation for pulmonary embolism is limited due to respiratory motion artifact. There is no pulmonary embolus to the segmental level. Pleura: No pleural effusion. No pneumothorax. Lymph Nodes: There is no hilar, mediastinal, axillary or internal mammary lymphadenopathy. Lungs: There is bilateral dependent atelectasis, moderate on the right and mild on the left. Additional scattered areas of linear atelectasis are present. Trachea: There are mild secretions in the trachea and right mainstem bronchus. Upper abdomen: Please see CT abdomen pelvis from the same day for details below the diaphragm. Bones and soft tissues: There are degenerative changes of the thoracic spine. No destructive bone lesion. The soft tissues are unremarkable. IMPRESSION: 1. No pulmonary embolism to the segmental level. 2. Abundant right lower lobe atelectasis. 3. Mild layering secretions in the trachea and right mainstem bronchus. [place] SECTION: Chest . 11/12/[address] [facility] Chest 1view DX EXAM: Chest 1view DX DATE: 11/12/2016 2:28 AM CDT INDICATION: Shortness of Breath ADDITIONAL HISTORY: 'AMS. Found in car by son not responding to commands or verbalizing. Stroke team activated.' COMPARISON: Chest 1 view 11/11/2016 at 2148 hours. TECHNIQUE: Portable AP semierect chest with a total of 1 image(s). The patient is slightly rotated to the right. FINDINGS: Lines, tubes, devices: There has been interval intubation with the endotracheal tube tip just above the level of the medial clavicles, projected approximately 5 cm above the thomas. Lungs: The lung volumes are markedly diminished with bibasilar platelike subsegmental atelectasis. Pleura: There is slight blunting of the right lateral recess that may indicate a trace right pleural effusion. There is no pneumothorax identified given the technique. Heart and mediastinum: The heart size is normal for technique. The pulmonary vasculature is normal. There is a tortuous thoracic aorta. Bones: No acute bony abnormality is identified. Soft Tissue: There is moderate gaseous distention of the stomach. IMPRESSION: 1. Interval intubation with the endotracheal tube tip at the level of the medial clavicles, projected approximately 5 cm above the thomas. 2. Markedly diminished lung volumes with bibasilar platelike subsegmental atelectasis. 3. Moderate gaseous distention of the stomach. Consider placement of a gastric suction tube for gastric decompression. 11/12/[address] [facility] Brain Stroke wo contrast CT CT HEAD WITHOUT CONTRAST DATE: 11/11/2016 at 9:32 PM COMPARISON: None. HISTORY: Weakness. TECHNIQUE: Contiguous axial images of the brain were obtained without intravenous contrast administration. Sagittal and coronal reformats were also provided. DLP: 991 mGy-cm. FINDINGS: There are no acute hemorrhages or acute infarcts. The pickett-white interfaces are well defined. An old lacuna is noted within the left caudate head, and low density is noted within the periventricular white matter consistent with chronic small vessel ischemic disease. A tiny ossified meningioma is noted in the left temporal region. There are no acute bony abnormalities. The calvarium is intact. IMPRESSION: 1. No acute intracranial abnormality. 2. Old with caudate lacuna and white matter hypodensity consistent with chronic small vessel ischemic disease. 3. Tiny left temporal ossified meningioma. Resident preliminary report by Dr. Cesar Trammell: IMPRESSION: No intracranial hemorrhage or early sign of stroke. Advanced chronic ischemic microangiopathic changes of the supratentorial white matter. [place] SECTION: Neuro 11/11/[address] [facility] Brain/Neck Stroke perfusion CTA EXAM: CTA BRAIN EXAM: CTA NECK EXAM: CT PERFUSION BRAIN DATE: 11/11/2016 at 9:37 PM CDT INDICATION: Weakness - Code Stroke COMPARISON: CT brain 11/11/2016 at 9:32 PM TECHNIQUE: - Dynamic CT perfusion images on a limited area of the brain parenchyma are performed during bolus injection of iodinated contrast material. Color maps of relative cerebral blood flow, relative cerebral blood volume, time to peak, and mean transit time are created on an independent workstation and are submitted along with the source image data. -Rapid acquisition spiral CT images of the brain and neck were obtained between the aortic arch and the cranial vertex during intravenous infusion of iodinated contrast for the purposes of CT angiography. 3-D CT angiographic images are created using MIP technique at the acquisition workstation. The source images are also presented for interpretation. IV contrast: 100 mL of Visipaque 320. DLP: 3443 mGy-cm FINDINGS: NECK CTA: Aortic arch: The great vessels originate from the aortic arch in the standard configuration. No origin stenosis is identified. Mild calcified atherosclerotic plaque is noted within the proximal right vertebral artery without stenosis. The vertebral artery origins are patent bilaterally. Carotid arteries: The cervical common carotid arteries and cervical internal carotid arteries have a normal course, caliber, and contour. There are areas of calcification at the carotid bifurcations. No hemodynamically significant stenosis of the carotid bifurcations or internal carotid arteries is present by NASCET criteria. There is no evidence of vascular injury. Vertebral arteries: The vertebral arteries have a normal course, caliber and contour. The left vertebral artery is hypoplastic with a dominant right vertebral artery, a normal variant. The soft tissues of the neck and other incidental structures are normal. BRAIN CTA: Anterior circulation: Normal appearance and a standard branching pattern. No branch occlusion, vascular injury, arteritis, vascular malformation or aneurysm is identified. Posterior circulation: Normal appearance and a standard branching pattern. No branch occlusion, vascular injury, arteritis, vascular malformation or aneurysm is identified. The deep cerebral veins and major venous sinuses are normal. The brain parenchyma and other incidental structures are unremarkable. CT PERFUSION: There is no regional abnormality in cerebral blood flow, cerebral blood volume, or transit time in the imaged areas of the brain to suggest active oligemia or infarction. RAPID infusion imaging demonstrates CBF <30% volume: 0 cc. Perfusion Tmax> 6.0s volume: 0 cc. Mismatch volume: 0 cc. Mismatch ratio: none. IMPRESSION: 1. Normal CTA of the head. 2. Calcified atherosclerotic plaque at the origin of the right vertebral artery, and within the bilateral carotid bulbs without stenosis. 3. Normal CT perfusion. (All qualitative and quantitative assessments of carotid bifurcation and proximal internal carotid artery stenosis are made referencing the distal internal carotid artery {NASCET criteria}.) Resident preliminary report by Dr. Cesar Trammell: IMPRESSION: No intracranial proximal branch occlusion. Left vertebral artery is diminutive. Normal perfusion images. [place] SECTION: Neuro 11/11/[address] [facility] Chest 1view DX EXAM: XR CHEST 1 VIEW DATE: 11/11/2016 2148 hours INDICATION: CVA COMPARISON: None TECHNIQUE: Semierect AP chest [place] SECTION: ER FINDINGS: Low lung volumes with resultant bronchovascular crowding. Minimal subsegmental atelectasis at the lung bases. No pneumothorax. No focal consolidation. Costophrenic recesses are sharp. Heart size is magnified by technique. Prominent central pulmonary vasculature likely due to technique and positioning. No acute bony findings. IMPRESSION: Low lung volumes with resultant bronchovascular crowding. Minimal subsegmental atelectasis at the lung bases. 11/11/[address] [facility] Consultation Notes No Data Provided for This Section Discharge Summaries No Data Provided for This Section History and Physicals No Data Provided for This Section Vital Signs Vital Sign Value Date Comments Source Respitory Rate 20 03/30/2018 [facility] Heart Rate 79 03/30/2018 [facility] Systolic (mm Hg) 157 03/30/2018 [facility] Diastolic (mm Hg) 88 03/30/2018 [facility] Systolic (mm Hg) 178 03/30/2018 [facility] Diastolic (mm Hg) 88 03/30/2018 [facility] Heart Rate 80 03/30/2018 [facility] Respitory Rate 20 03/30/2018 [facility] Weight 115.909 03/30/2018 [facility] Height 172.72 cm 03/30/2018 [facility] BMI Calculated 38.85 03/30/2018 [facility] Heart Rate 107 03/30/2018 [facility] Respitory Rate 18 03/30/2018 [facility] Temperature Oral (F) 97.8 F 03/30/2018 [facility] Systolic (mm Hg) 167 03/30/2018 [facility] Diastolic (mm Hg) 90 03/30/2018 [facility] Diastolic (mm Hg) 87 01/26/2018 [facility] Systolic (mm Hg) 143 01/26/2018 [facility] Height 67.50 01/26/2018 [facility] Heart Rate 75 01/26/2018 [facility] Temperature Oral (F) 98.7 F 01/26/2018 [facility] Weight 261 01/26/2018 [facility] Encoun[facility] Location Location Details Encounter Type Encounter Number Reason For Visit Attending Provider ADM Date DC Date Status Source [facility] New Patient Exp Problem - 89599 [id number] Radha Arreola MD 08/21/2015 [facility] Est Patient Exp Problem - 33505 [id number] Lilli MARTE 08/23/2015 [facility] Est Patient Exp Problem - 76099 [id number] Gabriel Brock MD 09/21/2015 [facility] Est Patient Detailed - 19244 [id number] Adelita Rizo MD 10/16/2015 [facility] Est Patient Detailed - 30803 [id number] Adelita Rizo MD 11/22/2015 [facility] Est Patient Exp Problem - 28471 [id number] Adelita Rizo MD 01/07/2016 [facility] Est Patient Exp Problem - 33793 [id number] Adelita Rizo MD 01/29/2016 [facility] Est Patient Detailed - 24868 [id number] Adelita Rizo MD 08/25/2016 [facility] Est Patient Detailed - 01911 [id number] Adelita Rizo MD 12/02/2016 [facility] Est Patient Detailed - 10659 [id number] Adelita Rizo MD 01/07/2017 [facility] Est Patient Exp Problem - 21761 [id number] Andrew Crooks APRN 02/12/2017 [facility] Patient Detailed - 87123 [id number] Yuridia Lissette DO 02/24/2017 [facility] Patient Detailed - 57289 [id number] Yuridia Lissette DO 05/07/2017 [facility] Est Patient Detailed - 63825 [id number] Debby Turner DO 01/26/2018 [facility] [id number] Michelle Guzmán 03/30/2018 03/30/2018 [facility] Procedures Procedure Code Date Perfomer Comments Source Psychotherapy 45 (38-52*) min - 75606 (with patient and/or family member) 66570 12/29/2016 Ankit FONSECA [facility] Xray - Chest - PA & Lat - InHouse [id number] 01/09/2016 Ausra LADDT [facility] Diagnostic evaluation (no medical) - 63550 64539 11/05/2015 Ankit FONSECA [facility] Diagnostic evaluation with medical - 44248 64199 10/03/2015 Ernie MCCALL [facility] Diagnostic evaluation (no medical) - 58523 47081 09/25/2015 Remy LYNN [facility] Operation on lumbar spine<sup>1</sup> [id number] 2013 [facility] Assessment and Plan No Data Provided for This Section Plan of Care No Data Provided for This Section Social History Social History Date Source Social History TypeResponse Smoking Status Former smoker; Type: Cigarettes; Ready to change: No; Concerns about tobacco use in household: Yes; Exposure to Tobacco Smoke None; Cigarette Smoking Last 365 Days No; Reg Smoking Cessation Counseling No1 entered on: 03/30/18 1smoked cig today 03/30/2018 [facility] Family History No Data Provided for This Section Advance Directives Order Name Results Value Date Source Advance Directives DISCUSSED - NO DECISION MADE DISCUSSED - NO DECISION MADE 12/02/2016 [facility] Functional Status No Data Provided for This Section
--- OUTSIDE RECORDS SUMMARY | 2019-01-08 15:21 | XMS REPORT | Summary of Care ---
Author Author [facility] Organization [facility] Address Unknown Phone Unavailable Encounter VANESSA Davidson(PASCALE) [phone] Date(s): 03/30/18 - 03/30/18 [facility] [id number] [place], [place] [address]- [phone] Encounter Diagnosis Abdominal pain, acute, right upper quadrant (Discharge Diagnosis) - 03/30/18 Acute gastroenteritis (Discharge Diagnosis) - 03/30/18 Noninfective gastroenteritis and colitis, unspecified (Final) - 06/12/18 Right upper quadrant pain (Final) - Type 2 diabetes mellitus without complications (Final) - Essential (primary) hypertension (Final) - Other longterm (current) drug therapy (Final) - Personal history of transient ischemic attack (TIA), and cerebral infarction wit hout residual deficits (Final) - Allergy status to other drugs, medicaments and biological substances status (Final) - Discharge Disposition: Home or Self Care Attending Physician: Michelle Guzmán MD Vital Signs 1 2 3 Most recent to oldest [Reference Range]: 172.72 cm (03/30/18 12:16 PM) Height 97.8 DegF (03/30/18 12:16 PM) Temperature Oral [96.4-99.1 DegF] 157/88 mmHg *HI* (03/30/18 2:30 PM) 178/88 mmHg *HI* (03/30/18 1:30 PM) 167/90 mmHg *HI* (03/30/18 12:16 PM) Blood Pressure [90-140/60-90 mmHg] 20 BRMIN (03/30/18 2:30 PM) 20 BRMIN (03/30/18 1:30 PM) 18 BRMIN (03/30/18 12:16 PM) Respiratory Rate [14-20 BRMIN] 79 bpm (03/30/18 2:30 PM) 80 bpm (03/30/18 1:30 PM) 107 bpm *HI* (03/30/18 12:16 PM) Peripheral Pulse Rate [60-100 bpm] 115.909 kg (03/30/18 12:16 PM) Weight 38.85 m2 (03/30/18 12:16 PM) Body Mass Index Problem List Condition Effective Dates Status Health Status Informant Hypertension(Confirm Resolved ed) TIA (transient Resolved ischemic attack)(Confirmed) Allergies, Adverse Reactions, Alerts Substance Reaction Severity Status Indocin Active Medications Cipro 500 mg oral tablet 500 mg=1 tab, PO, Q12H, X 7 day, # 14 tab, 0 Refill(s) Start Date: 03/30/18 Stop Date: 04/06/18 Status: Completed Flagyl 500 mg oral tablet 500 mg=1 tab, PO, BID, X 7 day, # 14 tab, 0 Refill(s) Start Date: 03/30/18 Stop Date: 04/06/18 Status: Completed morphine Sulfate 4 mg, 1 mL, Route: IVP, Drug form: SOLN, ONCE, Dosing Weight 115.909, kg, Priori ty: STAT, Start date: 03/30/18 12:40:00 CDT, Stop date: 03/30/18 12:40:00 CDT Notes: (Same as:MORPhine Sulfate) Start Date: 03/30/18 Stop Date: 03/30/18 Status: Completed ondansetron 8 mg, 4 mL, Route: IVP, Drug form: INJ, ONCE, Dosing Weight 115.909, kg, Priorit y: STAT, Start date: 03/30/18 12:40:00 CDT, Stop date: 03/30/18 12:40:00 CDT Notes: (Same as: Zofran) MEDICATION WASTE Product Size: 4 mgProduct Was clementine: ___ mg Start Date: 03/30/18 Stop Date: 03/30/18 Status: Completed Sodium Chloride 0.9% (Bolus) IV 1,000 mL, 1000 ml/hr, Infuse Over: 1 hr, Route: IV, 1,000, Drug form: INJ, ONCE, Priority: STAT, Dosing Weight 115.909 kg, Start date: 03/30/18 12:40:00 CDT, St op date: 03/30/18 12:40:00 CDT Start Date: 03/30/18 Stop Date: 03/30/18 Status: Completed Zofran ODT 4 mg oral tablet, disintegrating 4 mg=1 tab, PO, BID, PRN Nausea and Vomiting, Dissolve tab under tongue, # 10 ta b, 0 Refill(s) Start Date: 03/30/18 Stop Date: 04/04/18 Status: Ordered Results ELECTROLYTES Most recent to 1 oldest [Reference Range]: Sodium Lvl [135-145 138 mEq/L mEq/L] (03/30/18 12:43 PM) Potassium Lvl 4.4 mEq/L [3.5-5.1 mEq/L] (03/30/18 12:43 PM) Chloride Lvl [95-109 102 mEq/L mEq/L] (03/30/18 12:43 PM) CO2 [24-32 mEq/L] 28 mEq/L (03/30/18 12:43 PM) AGAP [10.0-20.0 12.4 mEq/L mEq/L] (03/30/18 12:43 PM) CHEM PANEL Most recent to 1 oldest [Reference Range]: Creatinine Lvl 1.15 mg/dL [0.50-1.40 mg/dL] (03/30/18 12:43 PM) eGFR 59 mL/min/1.73m2 1 *NA* (03/30/18 12:43 PM) BUN [7-22 mg/dL] 15 mg/dL (03/30/18 12:43 PM) B/C Ratio [6-25] 13 (03/30/18 12:43 PM) Glucose Lvl [70-99 143 mg/dL mg/dL] *HI* (03/30/18 12:43 PM) Total Protein 8.8 g/dL [6.4-8.4 g/dL] *HI* (03/30/18 12:43 PM) Albumin Lvl [3.5-5.0 4.1 g/dL g/dL] (03/30/18 12:43 PM) Globulin [2.7-4.2 4.7 g/dL g/dL] *HI* (03/30/18 12:43 PM) A/G Ratio [0.7-1.6] 0.9 (03/30/18 12:43 PM) Calcium Lvl 9.3 mg/dL [8.5-10.5 mg/dL] (03/30/18 12:43 PM) ALT [0-65 unit/L] 54 unit/L (03/30/18 12:43 PM) AST [0-37 unit/L] 51 unit/L *HI* (03/30/18 12:43 PM) Alk Phos [39-136 99 unit/L unit/L] (03/30/18 12:43 PM) Bili Total [0.2-1.3 0.5 mg/dL mg/dL] (03/30/18 12:43 PM) Lipase Lvl [73-393 64 unit/L unit/L] *LOW* (03/30/18 12:43 PM) 1Result Comment: The eGFR is calculated using the [...] from the National Kidney Disease Education Program ( NKDEP) which additionally recommends that when the eGFR is used in patients with extremes of body mass index for purposes of drug dosing, the eGFR should be mul tiplied by the estimated BMI. CARDIAC ENZYMES Most recent to 1 oldest [Reference Range]: Troponin-I <0.02 ng/mL [0.00-0.40 ng/mL] (03/30/18 12:43 PM) URINE AND STOOL Most recent to 1 oldest [Reference Range]: UA Turbidity [Clear] Slight Cloudy (03/30/18 2:05 PM) UA Color [Yellow] Viky *ABN* (03/30/18 2:05 PM) UA pH [5.0-8.0] 5.5 (03/30/18 2:05 PM) UA Spec Grav >=1.030 [<=1.030] *ABN* (03/30/18 2:05 PM) UA Glucose Negative [Negative] (03/30/18 2:05 PM) UA Blood [Negative] Negative (03/30/18 2:05 PM) UA Ketones Trace [Negative] *ABN* (03/30/18 2:05 PM) UA Protein Trace [Negative] *ABN* (03/30/18 2:05 PM) UA Urobilinogen 0.2 EU/dL [0.1-1.0 EU/dL] (03/30/18 2:05 PM) UA Bili [Negative] Small *ABN* (03/30/18 2:05 PM) UA Leuk Est Trace [Negative] *ABN* (03/30/18 2:05 PM) UA Nitrite Negative [Negative] (03/30/18 2:05 PM) UA WBC [None Seen 6-10 /HPF /HPF] *ABN* (03/30/18 2:05 PM) UA RBC [0-2 /HPF] 3-5 /HPF *ABN* (03/30/18 2:05 PM) UA Bacteria [None Many /HPF Seen /HPF] (03/30/18 2:05 PM) UA Sq Epi [Few /LPF] Many /LPF *ABN* (03/30/18 2:05 PM) UA Hyal Cast [0-2] 6-10 (03/30/18 2:05 PM) UA Amorph Gin [None Moderate /HPF Seen /HPF] *ABN* (03/30/18 2:05 PM) UA Mucus [None Seen Many /LPF /LPF] *ABN* (03/30/18 2:05 PM) HEMATOLOGY Most recent to 1 oldest [Reference Range]: WBC [3.7-10.4 K/CMM] 8.2 K/CMM (03/30/18 12:43 PM) RBC [4.20-5.40 5.48 M/CMM M/CMM] *HI* (03/30/18 12:43 PM) Hgb [12.0-16.0 g/dL] 15.8 g/dL (03/30/18 12:43 PM) Hct [36.0-48.0 %] 47.9 % (03/30/18 12:43 PM) MCV [80.0-98.0 fL] 87.3 fL (03/30/18 12:43 PM) MCH [27.0-31.0 pg] 28.9 pg (03/30/18 12:43 PM) MCHC [32.0-36.0 33.1 g/dL g/dL] (03/30/18 12:43 PM) RDW [11.5-14.5 %] 13.5 % (03/30/18 12:43 PM) MPV [7.4-10.4 fL] 7.6 fL (03/30/18 12:43 PM) Platelet [133-450 379 K/CMM K/CMM] (03/30/18 12:43 PM) Segs [45.0-75.0 %] 50.6 % (03/30/18 12:43 PM) Lymphocytes 38.2 % [20.0-40.0 %] (03/30/18 12:43 PM) Monocytes [2.0-12.0 9.3 % %] (03/30/18 12:43 PM) Eosinophils [0.0-4.0 1.3 % %] (03/30/18 12:43 PM) Basophils [0.0-1.0 0.6 % %] (03/30/18 12:43 PM) Neutrophils # 4.2 K/CMM [1.5-8.1 K/CMM] (03/30/18 12:43 PM) Lymphocytes # 3.1 K/CMM [1.0-5.5 K/CMM] (03/30/18 12:43 PM) Monocytes # [0.0-0.8 0.8 K/CMM K/CMM] (03/30/18 12:43 PM) Eosinophils # 0.1 K/CMM [0.0-0.5 K/CMM] (03/30/18 12:43 PM) PT [12.0-14.7 13.0 seconds seconds] (03/30/18 12:43 PM) INR [0.85-1.17] 0.98 (03/30/18 12:43 PM) PTT [22.9-35.8 26.2 seconds seconds] (03/30/18 12:43 PM) Microbiology Reports TEST: Culture: Urine STATUS: Auth (Verified) BODY SITE: SOURCE: Urine, Clean Catch COLLECTED DATE/TIME: 03/30/18 2:05 PM FINAL REPORT <10,000 CFU/mL Skin Radha Immunizations No data available for this section Procedures Procedure Date Related Diagnosis Body Site Status Operation on lumbar spine1 Completed 82063 Social History Social History Type Response Smoking Status Former smoker; Type: Cigarettes; Ready to change: No; Concerns about tobacco use in household: Yes; Exposure to Tobacco Smoke None; Cigarette Smoking Last 365 Days No; Reg Smoking Cessation Counseling No1 entered on: 03/30/18 1smoked cig today Assessment and Plan No data available for this section
[2019-01-08 16:02] LABS: AMPHETAMINES SCREEN,URINE NEGATIVE (NEGATIVE); PHENCYCLIDINE SCREEN,URINE NEGATIVE (NEGATIVE)
[2019-01-08 16:03] LABS: BENZODIAZEPINES SCREEN,URINE POSITIVE (NEGATIVE)
[2019-01-08 16:12] LABS: BASOPHILS % 0.6 % (0.0-1.0); EOSINOPHILS # (AUTO) 0.1 (0.0-0.4); EOSINOPHILS % 1.9 % (0.0-6.0); HEMATOCRIT 44.8 % (34.2-44.1); LYMPHOCYTES # (AUTO) 3.6 (1.0-3.2); LYMPHOCYTES % 52.1 % (18.0-39.1); MEAN CORPUSCULAR HGB CONC 33.5 g/dL (31-35); MEAN CORPUSCULAR VOLUME 86.5 fL (81-99); MONOCYTES # (AUTO) 0.7 (0.2-0.8); MONOCYTES % 10.4 % (4.4-11.3); NEUTROPHILS # (AUTO) 2.4 (2.1-6.9); NEUTROPHILS % 34.9 % (38.7-80.0); PLATELET COUNT 321 x10e3/uL (140-360); RED BLOOD COUNT 5.18 x10e6/uL (3.6-5.1); RED CELL DISTRIBUTION WIDTH 15.1 % (11.7-14.4)
[2019-01-08 16:28] LABS: INR 0.88; PROTHROMBIN TIME 12.4 seconds (11.9-14.5)
[2019-01-08 16:29] LABS: PARTIAL THROMBOPLASTIN TIME 27.2 seconds (23.8-35.5)
[2019-01-08 16:38] LABS: ALANINE AMINOTRANSFERASE 26 IU/L (0-55); ALBUMIN 4.4 g/dL (3.5-5.0); ALBUMIN/GLOBULIN RATIO 1.2 (0.8-2.0); ALKALINE PHOSPHATASE 95 IU/L (40-150); ANION GAP 17.7 mmol/L (8-16); BLOOD UREA NITROGEN 12 mg/dL (7-26); BUN/CREATININE RATIO 14 (6-25); CARBON DIOXIDE 25 mmol/L (22-29); CHLORIDE 100 mmol/L (98-107); CREATININE, SERUM 0.86 mg/dL (0.57-1.11); EST GLOMERULAR FILTRATION RATE > 60 ML/MIN (60-); GLUCOSE 110 mg/dL (74-118); POTASSIUM 3.7 mmol/L (3.5-5.1); SODIUM 139 mmol/L (136-145)
[2019-01-08 17:13] LABS: ACETAMINOPHEN < 3 ug/mL (10-30); SALICYLATE < 5.0 mg/dL (0-30)
--- NOTE | 2019-01-08 17:17 | NUR ---
PATIENT GIVEN INFO TO [facility]
--- NOTE | 2019-01-08 17:24 | NUR ---
PATIENT HAS ACTIVELY BEEN ON PHONE ATTEMPTING TO CONTACT FAMILY AND SHE IS SHOWING INTEREST IN PARTICIPATING IN [facility]
== END 2019-01-08 17:36 | disposition home or self-care (01) ==
LOC: ER 15:17
DX: F11.20 Opioid dependence, uncomplicated (principal); G89.29 Other chronic pain; I10 Essential (primary) hypertension
CPT/HCPCS: 36415; 80053; 80307; 80320; 80329; 85025; 85610; 85730; 99284